=== PATIENT | male | born 1985 | race Caucasian/White ===

== ENCOUNTER 2017-07-18 12:45 | Day surgery (SDC) | payer OTHER ==
[2017-07-18] MEDS ORDERED: LACTATED RINGERS 1,000 ML IV ONE (13:23)
[2017-07-18] MEDS ORDERED: fentaNYL 100 MCG/2 ML VIAL IVP ONE (14:45)
[2017-07-18] MEDS ORDERED: MIDAZOLAM 2 MG/2 ML VIAL IVP ONE (14:45)
[2017-07-18 15:57] VITALS: BP 101/56
== END 2017-07-18 12:46 | disposition home or self-care (01) ==
LOC: SDS 12:45
PROVIDERS: ATTEND Internal Medicine
PROC: 0DB38ZX Excision of Lower Esophagus, Via Natural or Artificial Opening Endoscopic, Diagnostic (ICD-10-PCS; principal; 2017-07-18 14:00)
DX: K20.0 Eosinophilic esophagitis (principal)
CPT/HCPCS: 43239; 88305; J7120

== ENCOUNTER 2018-04-18 08:25 | Outpatient (CLI) | payer OTHER ==
--- NOTE | 2018-04-19 08:45 | Nuclear Medicine Report ---
EXAM: GASTRIC EMPTYING STUDY EXAM DATE: 04/18/2018 03:56 PM. CLINICAL HISTORY: Nausea and vomiting. COMPARISON: None. TECHNIQUE: A standard meal was radiolabeled with 1.0 mCi Tc-99m sulfur colloid according to protocol. Following the p.o. administration of this meal, the patient underwent multiple static images over th e abdomen from the anterior and posterior ROSEANN projections, at approximately 0, 1, 2, and 4 hours foll owing the ingestion of the meal. Region of interest analysis was employed, and percent emptied/percen t remaining of the meal was calculated using both the geometric mean and decay corrections. FINDINGS: Calculations demonstrate: TIME (hours) Percent remaining. Normal values for percent remaining. 1 hour: 11.1 (30-90%) 2 hours: 2.8 (0-60%) 4 hours: 1.0 (0-10%) IMPRESSION: The findings are suggestive of rapid gastric emptying. [facility] Referring Provider Line: [phone] SITE ID: [id number]
== END 2018-04-18 08:26 | disposition home or self-care (01) ==
LOC: DI 08:25
PROVIDERS: ATTEND Physician Assistant
DX: R11.2 Nausea with vomiting, unspecified (principal)
CPT/HCPCS: 78265; A9541

== ENCOUNTER 2018-11-30 10:03 | Outpatient (CLI) | payer OTHER | END 2018-11-30 10:04 | disposition short-term general hospital (02) | LOC: EMS 10:03 | PROVIDERS: ATTEND Surgery | DX: R41.82 Altered mental status, unspecified (principal) | CPT/HCPCS: A0425; A0427 ==